=== PATIENT | male | born 1945 | race Caucasian/White ===

== ENCOUNTER → 2019-06-21 | Outpatient (CLI) | payer OTHER ==
[~2019-06-21] VITALS: Ht 165.1 cm; Wt 72.6 kg
[~2019-06-21] MED LIST: ASA81BEC PO; IRON240 M1 PO; LIPITOR 20 MG T20 M1 PO; VITAMIN D400 UNIT PO
--- NOTE | 2019-06-21 10:57 | P ---
[facility] [address] [address] [place] [address] PROCEDURE REPORT Name: ANA DEMPSEY Room #: REG [facility]ITAL[facility] [id number] Admission: 06/21/19 Attend Phys: Ronaldo Cuenca Discharge: Date of : 49 Report #: [id number] THIS REPORT FOR: //name// CC: Matt Dejesus DATE OF SERVICE: 06/21/2019 PROCEDURE PERFORMED: Colonoscopy with biopsies. HISTORY OF PRESENT ILLNESS: The patient is a 74-year-old male who presents today for routine followup colonoscopy, history of polyps on last colonoscopy approximately 4-5 years ago. He denies any symptoms. No family history of colon cancer. DESCRIPTION OF PROCEDURE: The risks and benefits of the procedure were explained to the patient, those risks including but not limited to bleeding, perforation and the risk of sedation. He understood these risks and gave informed consent. Sedation was given using propofol per Anesthesia. Next, a digital rectal exam showed small external hemorrhoids, but otherwise normal. Next, using a standard Olympus colonoscope, the scope was placed in the patient's anus and advanced under direct vision to the cecum. The overall prep was excellent. The cecum and ileocecal valve were normal in appearance. Ascending, transverse and descending colon were all normal. Multiple small diverticula were noted in the sigmoid colon, no evidence of inflammation, otherwise normal. In the rectum, there is a tattoo noted with a previous polypectomy site. This was well healed; however, there was one area of a possible polyp of 3 mm near this area. This was removed by cold forceps. On retroflexion, small nonbleeding internal hemorrhoids were noted. The scope was then withdrawn and the procedure terminated. The patient tolerated the procedure well. IMPRESSION: 1. Possible small rectal polyp, near previous polypectomy site. 2. Diverticulosis. 3. Internal and external hemorrhoids. 4. Otherwise, normal colonoscopy. RECOMMENDATIONS: 1. Await biopsy results. 2. If adenomatous polyp in the rectum, repeat in 5 years. If negative, consider repeat colonoscopy in [address] [address] PROCEDURE REPORT Name: ANA DEMPSEY Room #: REG ESME Bean#: [id number] Admission: 06/21/19 Attend Phys: Ronaldo Cuenca Discharge: Date of : 49 Report #: [id number] Thank you for allowing me to participate in his care. <ELECTRONICALLY SIGNED> By: Ronaldo Dejesus MD 06/21/19 [id number] [phone] Ronaldo Dejesus MD /nt
--- NOTE | 2019-06-23 16:06 | PATH ---
[facility] [address] [place] [address] PATHOLOGY RPT PROCEDURE Name: DAVID DEMPSEY Room #: REG ESME Pacheco.#: [id number] Admission: 06/21/19 Date of : 49 Discharge: Report #: [id number] Path Case #: [id number] [facility] Accession Number: [id number] . 01 Material submitted: . rectum - POLYP AT RECTUM NEAR PREVIOUS POLYPECTOMY SITE . 01 Clinical history: . Pre-op diagnosis: History of polyps Post-op diagnosis: Hemorrhoids, diverticulosis, rectal polyp . 02 Diagnosis: Polyp, at rectum, previous polypectomy site, endoscopic biopsy: - Hyperplastic changes as well as reactive/regenerative changes. - Negative for dysplasia or malignancy. . (IUV:mml; 06/23/2019) QL 06/23/2019 1253 Local . 02 Electronically signed: . Stefanie Bailon MD, Pathologist NPI- [id number] . 01 Gross description: . The specimen is received in formalin, labeled "David Dempsey, polyp at rectum near previous polypectomy site". Received are two segments of pale vallejo soft tissue ranging in size from 0.3 to 0.4 cm in maximum dimensions. The specimen is submitted entirely in cassette A1. (CAA; 06/22/2019) QAC/QA 06/22/2019 0940 Local . 02 Pathologist provided ICD-10: K64.9, K57.90, K62.1 . 02 CPT . 876838 Specimen Comment: A courtesy copy of this report has been sent to [phone], [phone] Specimen Comment: [phone] Specimen Comment: Report sent to / DR RUELAS Performed at: 01 [place] [id number] [address] [id number] MD Fito Forrester MD Phone: [phone] Performed at: [address] [id number] [address] [address] PATHOLOGY RPT PROCEDURE Name: DAVID DEMPSEY Room #: MARYANN Bean#: [id number] Admission: 06/21/19 Date of : 49 Discharge: Report #: [id number] Path Case #: [id number] MD Stefanie Bailon MD Phone: [phone]
== END | disposition home or self-care (01) ==
LOC: GI 06:57
DX: Z12.11 Encounter for screening for malignant neoplasm of colon (principal); Z86.010 Personal history of colon polyps; K62.1 Rectal polyp; K57.30 Diverticulosis of large intestine without perforation or abscess without bleeding; K64.8 Other hemorrhoids; K64.4 Residual hemorrhoidal skin tags; E78.5 Hyperlipidemia, unspecified; D64.9 Anemia, unspecified; Z87.442 Personal history of urinary calculi; Z98.890 Other specified postprocedural states; Z79.899 Other long term (current) drug therapy; Z79.82 Long term (current) use of aspirin
CPT/HCPCS: 62110; 62900